=== PATIENT | male | born 1960 | race Two or more races ===

== ENCOUNTER 2017-01-10 12:12 | Emergency (ER) | payer OTHER ==
[~2017-01-10] VITALS: Ht 177.8 cm; Wt 106.6 kg
[~2017-01-10 12:12] MED LIST: AMLODIPINE BESY10 MG ORAL; AUGMENTIN 875-1 EAC1 ORAL; HYDROXYZINE HCL50 M1 PO
[2017-01-10 12:18] VITALS: BP 126/79
--- NOTE | 2017-01-10 13:06 | Emergency Room Report ---
History of Present Illness General Chief Complaint: Foreign Body Source: Patient Present Illness HPI 56-year-old male presents to the emergency department complaining of cotton from Q-tip instruction his right ear since last night. Patient denies pain. Patient states he tried several methods to remove the cotton however he was unsuccessful. Patient denies decrease in hearing, discharge, bleeding, fevers or chills. Denies CP, Palpitations, LOC, AMS, dizziness, Changes in Vision, Sensation, paresthesias, or a sudden severe headache. Allergies: Coded Allergies: AMOXICILLIN (Verified Adverse Reaction, Mild, 01/30/16) Patient developed swelling/redness to right foot after Augmentin PPx given for squirrel bite CLAVULANIC ACID (Verified Adverse Reaction, Mild, 01/30/16) Patient developed swelling/redness to right foot after Augmentin PPx given for squirrel bite Patient History Past Medical History: see triage record Past Surgical History: none Pertinent Family History: none Immunizations: UTD Reviewed Nursing Documentation: PMH: Agreed, PSxH: Agreed Nursing Documentation-PMH Hx Hypertension: Yes Review of Systems All Other Systems: negative except mentioned in HPI Physical Exam Vital Signs Date Time Temp Pulse Resp B/P (MAP) Pulse Ox O2 Delivery O2 Flow Rate FiO2 01/10/17 12:18 98.2 91 16 126/79 97 Room Air Sp02 EP Interpretation: reviewed, normal General Appearance: no apparent distress, alert, GCS 15, non-toxic Head: normocephalic, atraumatic Eyes: bilateral eye normal inspection, bilateral eye PERRL ENT: hearing grossly normal, normal voice, other - obvious cotton Fb in the Right ear. no evidence of infection some mild canal trauma trauma noted. Neck: full range of motion Respiratory: lungs clear, normal breath sounds, speaking full sentences Cardiovascular #1: regular rate, rhythm Musculoskeletal: back normal, gait/station normal, normal range of motion Neurologic: alert, oriented x3, responsive, motor strength/tone normal, sensory intact, speech normal Psychiatric: judgement/insight normal, memory normal, mood/affect normal Skin: normal color, no rash, warm/dry, well hydrated Medical Decision Making PA Attestation Dr. yepez is my supervising Physician whom patient management has been discussed with. Diagnostic Impression: Primary Impression: Ear foreign body Qualified Codes: T16.1XXA - Foreign body in right ear, initial encounter ER Course 56-year-old male presents to the emergency department complaining of cotton from Q-tip instruction his right ear since last night. Patient denies pain. Patient states he tried several methods to remove the cotton however he was unsuccessful. Patient denies decrease in hearing, discharge, bleeding, fevers or chills. Denies CP, Palpitations, LOC, AMS, dizziness, Changes in Vision, Sensation, paresthesias, or a sudden severe headache. Ddx considered but are not limited to OM, OE, mastoiditis, TM perforation, FB Vital signs: are WNL, pt. is afebrile H&PE are most consistent with foreign body of the Right ear ORDERS: none required at this time, the diagnosis is clinical -OTOSCOPY: obvious cotton Fb in the Right ear. no evidence of infection some mild canal trauma trauma noted. ED INTERVENTIONS: Single attempt with alligator forceps was made to remove foreign body and was successful. The pt. tolerated well, there were no complications. DISCHARGE: At this time pt. is stable for d/c to home. Will provide printed patient care instructions, and any necessary prescriptions. Care plan and follow up instructions have been discussed with the patient prior to discharge. D/w followup with ENT specialist for removal. Last Vital Signs Date Time Temp Pulse Resp B/P (MAP) Pulse Ox O2 Delivery O2 Flow Rate FiO2 01/10/17 12:18 98.2 91 16 126/79 97 Room Air Disposition: HOME, SELF-CARE Condition: Stable Patient Instructions: Ear Foreign Body Additional Instructions: REFRAIN FROM USING Q-TIPS IN THE EAR CANAL Follow up with a Primary Care Provider in 3-5 days, even if your symptoms have resolved. --Please review list of primary care clinics, if you do not already have a primary care provider Return sooner to ED if new symptoms occur, or current symptoms become worse. - Please note that this Emergency Department Report was dictated using Graffiticlient application support engineer technology software, occasionally this can lead to erroneous entry secondary to interpretation by the dictation equipment. Autumn Rutherford Jan 10, 2017 13:06
[2017-01-10 13:15] VITALS: BP 126/79
[2017-01-10 13:20] VITALS: BP 126/79
== END 2017-01-10 13:20 | disposition home or self-care (01) ==
LOC: EMR 13:07
DX: T16.1XXA Foreign body in right ear, initial encounter (principal); I10 Essential (primary) hypertension; Z88.1 Allergy status to other antibiotic agents; Z88.8 Allergy status to other drugs, medicaments and biological substances; X58.XXXA Exposure to other specified factors, initial encounter; Y92.9 Unspecified place or not applicable
CPT/HCPCS: 99282

== ENCOUNTER 2017-09-23 12:32 | Emergency (ER) | payer OTHER ==
[~2017-09-23] VITALS: Ht 177.8 cm; Wt 95.3 kg
[2017-09-23] MEDS ORDERED: ASPIR 8181 MG ORAL (12:44)
--- NOTE | 2017-09-23 12:59 | Emergency Room Report ---
History of Present Illness General Chief Complaint: Skin Rash/Abscess Source: Patient Present Illness HPI 57-year-old male presents to the emergency department complaining of several welts that appeared on his forehead as well as generalized around his scalp 3 days. Patient reports some mild itchiness on the first day.He denies pain other than a few being mildly tender on the nape of his neck. Patient reports several are somewhat tender to the touch denies burning sensations denies other contacts with similar symptoms. 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 Denies lesions/rashes elsewhere on the body. Denies new medications or body washes or creams. Denies swelling of the lips, tongue , throat or airway. Denies wheezing, or shortness of breath. denies blisters, oral lesions, or sloughing of the skin. Allergies: Coded Allergies: AMOXICILLIN (Verified Adverse Reaction, Mild, 01/30/16) Patient developed swelling/redness to right foot after Augmentin PPx given for squirrel bite CLAVULANIC ACID (Verified Adverse Reaction, Mild, 01/30/16) Patient developed swelling/redness to right foot after Augmentin PPx given for squirrel bite Patient History Past Medical History: see triage record Past Surgical History: none Pertinent Family History: none Reviewed Nursing Documentation: PMH: Agreed; PSxH: Agreed Nursing Documentation-PMH Past Medical History: No History, Except For Hx Hypertension: Yes Hx Gastrointestinal Problems: Yes - Hepatitis C Review of Systems All Other Systems: negative except mentioned in HPI Physical Exam Vital Signs Date Time Temp Pulse Resp B/P (MAP) Pulse Ox O2 Delivery O2 Flow Rate FiO2 09/23/17 12:38 97.8 84 16 122/79 94 Room Air 97.9 Sp02 EP Interpretation: reviewed, normal General Appearance: no apparent distress, alert, GCS 15, non-toxic Head: normocephalic, atraumatic Eyes: bilateral eye normal inspection, bilateral eye PERRL, bilateral eye other - no lesions near or around the eyes ENT: hearing grossly normal, normal voice, other - no lesions on the nose, no oral lesions, no swelling of the lips or tongue. Neck: full range of motion Respiratory: chest non-tender, lungs clear, normal breath sounds, speaking full sentences Cardiovascular #1: regular rate, rhythm Musculoskeletal: back normal, gait/station normal, normal range of motion, non- tender Neurologic: alert, oriented x3, responsive, motor strength/tone normal, sensory intact, normal gait, speech normal, grossly normal Psychiatric: judgement/insight normal Skin: normal color, warm/dry, well hydrated, rash - multiple discrete papules, no appreciable tenderness with palpation. no blisters, no lesions near the eyes or on the nose. lesions cross the midline in the scalp area. Lymphatic: no adenopathy Medical Decision Making PA Attestation Dr. Black is my supervising Physician whom patient management has been discussed with. Diagnostic Impression: Primary Impression: Rash and other nonspecific skin eruption ER Course 57-year-old male presents to the emergency department complaining of several welts that appeared on his forehead as well as generalized around his scalp 3 days. Patient reports some mild itchiness on the first day.He denies pain other than a few being mildly tender on the nape of his neck. Patient reports several are somewhat tender to the touch denies burning sensations denies other contacts with similar symptoms. 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 Denies lesions/rashes elsewhere on the body. Denies new medications or body washes or creams. Denies swelling of the lips, tongue , throat or airway. Denies wheezing, or shortness of breath. denies blisters, oral lesions, or sloughing of the skin. Ddx considered but are not limited to cellulitis, scabies, insect bites, tic bites, spider bites, contact dermatitis, Drug reaction, allergic reaction, shingles, fungal infection, lice. Vital signs: are WNL, pt. is afebrile H&PE are most consistent with small insect or mite bites. - multiple discrete papules, no appreciable tenderness with palpation. no blisters, no lesions near the eyes or on the nose. lesions cross the midline in the scalp area. ORDERS: none required at this time, the diagnosis is clinical ED INTERVENTIONS: None required at this time. DISCHARGE: At this time pt. is stable for d/c to home. Will provide printed patient care instructions, and any necessary prescriptions. Care plan and follow up instructions have been discussed with the patient prior to discharge. Last Vital Signs Date Time Temp Pulse Resp B/P (MAP) Pulse Ox O2 Delivery O2 Flow Rate FiO2 09/23/17 12:38 97.8 84 16 122/79 94 Room Air 97.9 Disposition: HOME, SELF-CARE Condition: Stable Scripts Permethrin* (ELIMITE*) 60 Gm Cream..g. 1 APPLIC TOPIC ONCE, #60 GM 0 Refills Apply cream from head to toe; leave on for 8-14 hours before washing off with water; may reapply in 1 week if live mites appear. Prov: Autumn Rutherford 09/23/17 Hydrocortisone 2% Cream (ANTI-ITCH 2% CREAM) Y Cr 1 APPLIC TP TID, #28.3 GM Prov: Autumn Rutherford 09/23/17 Diphenhydramine Hcl* (BENADRYL*) 25 Mg Capsule 25 MG ORAL Q6H PRN for Itching, #20 CAP Prov: Autumn Rutherford 09/23/17 Patient Instructions: Rash, [id number], Scabies, Pediatric Additional Instructions: Take medications as directed. Follow up with a Primary Care Provider or Dictating Machine Mechanic in 3-5 days, even if your symptoms have resolved. --Please review list of primary care clinics, if you do not already have a primary care provider Return sooner to ED if new symptoms occur, or current symptoms become worse. Do not drink alcohol, drive, or operate heavy machinery while taking Bendaryl as this may cause drowsiness. - Please note that this Emergency Department Report was dictated using Lalalamaregistered medical transcriptionist technology software, occasionally this can lead to erroneous entry secondary to interpretation by the dictation equipment. Autumn Rutherford September 23, 2017 12:59
[2017-09-23 13:01] VITALS: BP 122/79
[2017-09-23] MEDS ORDERED: PERMETHRIN60 GM TOPIC (13:01)
[2017-09-23] MEDS ORDERED: ANTI-ITCH28 G1 TP (13:01)
[2017-09-23] MEDS ORDERED: BENADRYL25 MG ORAL (13:01)
[2017-09-23 13:06] VITALS: BP 122/79
== END 2017-09-23 13:08 | disposition home or self-care (01) ==
LOC: EMR 12:50
DX: R21 Rash and other nonspecific skin eruption (principal); Z88.0 Allergy status to penicillin; I10 Essential (primary) hypertension; B19.20 Unspecified viral hepatitis C without hepatic coma
CPT/HCPCS: 99284

== ENCOUNTER 2019-03-14 16:05 | Emergency (ER) | payer OTHER ==
[~2019-03-14] VITALS: Ht 177.8 cm; Wt 90.7 kg
[~2019-03-14 16:05] MED LIST changes: +ANTI-ITCH28 G1 TP; +ASPIR 8181 MG ORAL; +BENADRYL25 MG ORAL; +PERMETHRIN60 GM TOPIC
[2019-03-14 16:16] VITALS: BP 125/83
[2019-03-14] MEDS ORDERED: NKM (16:19)
--- NOTE | 2019-03-14 16:24 | NUR ---
ED Nurse Note: PT WALKED IN DUE TO BILATERAL HAND RASH AND REDNESS X 2 WEEKS. STATES MILD ITCHING. AAO X4 AND AMBULATORY.
--- NOTE | 2019-03-14 16:43 | Emergency Room Report ---
History of Present Illness General Chief Complaint: Skin Rash/Abscess Source: Patient Present Illness HPI 58-year-old male presents to the emergency department complaining of non-itchy nonpainful dry cracking rash to the bilateral hands x1 week. Patient reports initially was pretty localized between the fingers and over the knuckles however he states that he is noticing the rash is progressing up the dorsum of the hands bilaterally. reports 4/ 10 in severity tenderness over several knuckles where his skin is cracking. Patient denies history of eczema. Pt. denies fevers, chills or swollen tender lymph nodes. Denies lesions/rashes elsewhere on the body. Denies new medications or body washes or creams. Denies swelling of the lips, tongue , throat or airway. Denies wheezing, or shortness of breath. Denies recent travel, recent illness or ill contacts. denies blisters, oral lesions, or sloughing of the skin Allergies: Coded Allergies: AMOXICILLIN (Verified Adverse Reaction, Mild, 01/30/16) Patient developed swelling/redness to right foot after Augmentin PPx given for squirrel bite CLAVULANIC ACID (Verified Adverse Reaction, Mild, 01/30/16) Patient developed swelling/redness to right foot after Augmentin PPx given for squirrel bite Patient History Past Medical History: see triage record Past Surgical History: none Pertinent Family History: none Immunizations: UTD Reviewed Nursing Documentation: PMH: Agreed; PSxH: Agreed Nursing Documentation-PM Past Medical History: No Stated History Hx Hypertension: Yes Hx Gastrointestinal Problems: Yes - Hepatitis C Review of Systems All Other Systems: negative except mentioned in HPI Physical Exam Vital Signs Date Time Temp Pulse Resp B/P (MAP) Pulse Ox O2 Delivery O2 Flow Rate FiO2 03/14/19 16:16 98.1 94 17 125/83 95 Room Air Sp02 EP Interpretation: reviewed, normal General Appearance: no apparent distress, alert, GCS 15, non-toxic Head: normocephalic, atraumatic Eyes: bilateral eye normal inspection, bilateral eye PERRL ENT: hearing grossly normal, normal voice Neck: full range of motion Respiratory: lungs clear, normal breath sounds, no wheezing, speaking full sentences Cardiovascular #1: regular rate, rhythm, normal capillary refill Musculoskeletal: back normal, gait/station normal, normal range of motion, non- tender Neurologic: alert, oriented x3, responsive, motor strength/tone normal, sensory intact, speech normal, grossly normal Psychiatric: judgement/insight normal Skin: rash - bilateral hands and forearms: dry cracking plaques over the extensor surfaces, knuckles , and interdigital spaces. No blisters or vessicles , mild surrounding erythema to cracked open wound on the right 3rd knuckle. some crusting noted. Lymphatic: no adenopathy Medical Decision Making PA Attestation Dr. Weber is my supervising Physician whom patient management has been discussed with. Diagnostic Impression: Primary Impression: Eczematous dermatitis Qualified Codes: L30.8 - Other specified dermatitis Additional Impression: Rash and other nonspecific skin eruption ER Course 58-year-old male presents to the emergency department complaining of non-itchy nonpainful dry cracking rash to the bilateral hands x1 week. Patient reports initially was pretty localized between the fingers and over the knuckles however he states that he is noticing the rash is progressing up the dorsum of the hands bilaterally. reports 4/ 10 in severity tenderness over several knuckles where his skin is cracking. Patient denies history of eczema. Pt. denies fevers, chills or swollen tender lymph nodes. Denies lesions/rashes elsewhere on the body. Denies new medications or body washes or creams. Denies swelling of the lips, tongue , throat or airway. Denies wheezing, or shortness of breath. Denies recent travel, recent illness or ill contacts. denies blisters, oral lesions, or sloughing of the skin Ddx considered but are not limited to cellulitis, scabies, shingles, varicella, dermatitis, urticaria, eczema, tinea, viral exanthem, SJS Vital signs: are WNL, pt. is afebrile H&PE are most consistent with nonspecific rash with mild secondary cellulitic infection. eczematous in appearance ORDERS: none required at this time, the diagnosis is clinical ED INTERVENTIONS: None required at this time. DISCHARGE: At this time pt. is stable for d/c to home. Will provide printed patient care instructions, and any necessary prescriptions. Care plan and follow up instructions have been discussed with the patient prior to discharge. Last Vital Signs Date Time Temp Pulse Resp B/P (MAP) Pulse Ox O2 Delivery O2 Flow Rate FiO2 03/14/19 16:16 98.1 94 17 125/83 (97) 95 Room Air Disposition: HOME, SELF-CARE Condition: Stable Scripts Prednisone* (PREDNISONE*) 20 Mg Tablet 40 MG ORAL DAILY for 3 Days, #6 TAB Prov: Autumn Rutherford 03/14/19 Cephalexin* (KEFLEX*) 500 Mg Capsule 500 MG ORAL EVERY 12 HOURS for 7 Days, #14 CAP 0 Refills Prov: Autumn Rutherford 03/14/19 Bacitracin/Polymyxin B Sulfate (BACITRACIN-POLYMYXIN OINTMENT) 28.35 Gm Oint...g. 1 APPLIC TP BID, #28.3 GM Prov: Autumn Rutherford 03/14/19 Triamcinolone Acet (Triamcinolone Acetonide) 15 Gm Cream..g. 1 APPLIC APPLIC BID, #15 GM 1 Refill Prov: Autumn Rutherford 03/14/19 Patient Instructions: Eczema, Rash Additional Instructions: Take medications as directed. Follow up with a Primary Care Provider in 3-5 days for DERMATOLOGY REFERRAL , even if your symptoms have resolved. --Please review list of primary care clinics, if you do not already have a primary care provider Return sooner to ED if new symptoms occur, or current symptoms become worse. - Please note that this Emergency Department Report was dictated using Depositphotosgrades 1 through 5 teacher technology software, occasionally this can lead to erroneous entry secondary to interpretation by the dictation equipment. Autumn Rutherford Mar 14, 2019 16:43
[2019-03-14] MEDS ORDERED: PREDNISONE20 MG ORAL (16:45)
[2019-03-14] MEDS ORDERED: CEPHALEXIN500 MG ORAL (16:45)
[2019-03-14] MEDS ORDERED: BACITRACIN-P28.35 GM TP (16:45)
[2019-03-14] MEDS ORDERED: KENALOG 0.5% CR15 GM APPLIC (16:45)
[2019-03-14 16:55] VITALS: BP 136/70
--- NOTE | 2019-03-14 16:55 | NUR ---
ER DISCHARGE NOTE: Patient is cleared to be discharged per PA, pt is aox4, on room air, with stable vital signs. pt was given dc and prescription instructions, pt was able to verbalize understanding, pt id band removed without complications. pt is able to ambulate with steady gait. pt took all belongings.
== END 2019-03-14 16:55 | disposition home or self-care (01) ==
LOC: EMR 16:42
DX: L30.8 Other specified dermatitis (principal); I10 Essential (primary) hypertension; B19.20 Unspecified viral hepatitis C without hepatic coma; Z88.8 Allergy status to other drugs, medicaments and biological substances; Z88.1 Allergy status to other antibiotic agents
CPT/HCPCS: 99282